=== PATIENT | male | born 1940 | race Caucasian/White ===

== ENCOUNTER → 2017-06-13 | Outpatient (CLI) | payer OTHER ==
[~2017-06-13] VITALS: Ht 177.8 cm; Wt 67.1 kg
[~2017-06-13] MED LIST: B12INJ IM; CHILD IBUP100 MG/5 M PT; CHILDREN'S100 MG/59 PER TUBE; CHILDREN'S160 MG/53 PER TUBE; COMBIGAN EYE DR10 ML OTIC; COSOPT OCUMETER10 M1 OP; CYANOCOBALAM1000 MCG IM; DIOCTO50 MG/5 ML PER TUBE; FLOMAX0.4 MG PER TUBE; GLUCOPHAGE1000 MG PT; GLUMETZA1000; KEFLEX500 M1 PER TUBE; KEFLEX500 MG PO; KEPPRA 100100 MG/M1 PO; LANSOPRAZOLE30 MG PO; LEVAQUIN 500 M500 M2 PER TUBE; LUMIGAN2.5 M1 OP; MECLIZINE 25 MG25 M1 PO; MIRALAX17 GM PO; NEXIUM40 MG PT; NOVOLOG100 UNIT/1; PENICILLIN VK500 M1 PO; PHENADOZ25 MG; PHENERGAN 25 MG25 M1 PER TUBE; PHENERGAN 25 MG25 M1 PO; PREVACID15 MG PER TUBE; PROMETHAZI; PROSCAR 5MG TABL5 MG PER TUBE; PROTONIX40 M1 PER TUBE; TAMSULOSIN HCL0.4 M1; TAMSULOSIN HCL0.4 M1 PER TUBE; TRAVATAN 0.004%5 ML OP; TRUSOPT5 ML OP; TRUSOPT5 ML OPHTHALMIC; URECHOLINE 25 M25 M1 GT; URECHOLINE50 MG PER TUBE; [UNRECOGNIZED DRUG - OTHER] PO
--- NOTE | ~2017-06-13 | P ---
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 Current PEG tube is in place for about 3 years and has started to deteriorate. PREOPERATIVE DIAGNOSIS: Failing PEG tube. POSTOPERATIVE DIAGNOSIS: Dysphagia secondary to postoperative changes from ENT cancer surgery. ESTIMATED BLOOD LOSS: 3 mL. PROCEDURE: Initial traction removal of PEG tube followed by aborted attempt at endoscopic placement. FINDINGS: In the presurgical area the patient was seen and examined and initial plans were by tract removal of the PEG tube. The PEG tube was well lubricated and traction was applied to the tube. It required a considerable effort to pull the PEG tube and the internal retention disk broke from the PEG tube. The tube was pulled out of the fistula. We then applied the insertion trocar to the replacement PEG tube and stretched it out to pass through the fistula. However, on several attempts, I could not pass the replacement tube through the fistula. It may be scarred or there may be irregular course. Due to the amount of pressure required, it was felt to be unsafe to attempt to place this tube blindly externally through the existing fistula tract. We then had the patient taken to the endoscopy suite and under propofol sedation, we attempted to pass an EGD scope. However, in his pharynx, I could not find a lumen into the esophagus. Multiple angles were attempted and at no point could I see any lumen to pass the scope. Therefore, it was felt that we could not endoscopically place this tube. The EGD was aborted at that point. At that point, it was felt best to have the patient go to Interventional Radiology for placement of tube in the fluoroscopy suite. The patient is agreeable to this plan. CONDITION OF THE PATIENT UPON DISCHARGE: Following procedure, the patient [address] [address] PROCEDURE REPORT Name: CLARI GRACIA Room #: REG [facility]#: [id number] Admission: 06/13/17 Attend Phys: Miki Gutierrez MD Discharge: Date of : 42 Report #: [id number] drowsy. He will be then taken to the Interventional Radiology for placement of a PEG tube. INSTRUCTIONS TO THE PATIENT AND FAMILY AT THE TIME OF DISCHARGE: Resume use of tube per Radiology orders. He should return to see me on an as needed basis. Unfortunately, going forward, he may need to go to Interventional Radiology for PEG tube placement in the future. <ELECTRONICALLY SIGNED> By: Miki Gutierrez MD 06/14/17 1201 0925 [id number] Miki Gutierrez MD /nt
== END | disposition home or self-care (01) ==
LOC: GI 07:30
DX: K94.23 Gastrostomy malfunction (principal); R13.19 Other dysphagia; K21.9 Gastro-esophageal reflux disease without esophagitis; Z85.89 Personal history of malignant neoplasm of other organs and systems; Z98.890 Other specified postprocedural states; Z79.899 Other long term (current) drug therapy
CPT/HCPCS: 62110; 62900

== ENCOUNTER 2017-10-04 11:59 | Emergency (ER) | payer OTHER ==
[~2017-10-04] VITALS: Ht 177.8 cm; Wt 66.2 kg
[2017-10-04 14:00] VITALS: BP 108/66
== END 2017-10-04 13:58 | disposition home or self-care (01) ==
LOC: ER 11:59
DX: K94.23 Gastrostomy malfunction (principal)

== ENCOUNTER 2017-10-10 08:39 | Emergency (ER) | payer OTHER ==
[~2017-10-10] VITALS: Ht 167.6 cm; Wt 66.2 kg
[2017-10-10 09:47] VITALS: BP 103/55
== END 2017-10-10 19:04 | disposition home or self-care (01) ==
LOC: ER 08:39
DX: K94.23 Gastrostomy malfunction (principal); K21.9 Gastro-esophageal reflux disease without esophagitis

== ENCOUNTER 2018-03-16 18:37 | Inpatient (IN) | payer OTHER ==
[~2018-03-16] VITALS: Ht 177.8 cm; Wt 66.2 kg
[2018-03-16 18:40] VITALS: BP 110/60
[2018-03-16 19:09] LABS: HEMATOCRIT 39.7 % (42.0-52.0); HEMOGLOBIN 13.7 gm/dL (14.0-18.0); MCHC 34.6 g/dL (28.0-37.0); MCV 95.5 fL (80.0-100.0); RBC 4.16 mil/uL (4.50-6.00); RDW 12.7 % (10.5-14.5); WBC 10.7 thou/uL (4.0-11.0)
[2018-03-16 19:19] LABS: ANION GAP 8 mmol/L (7-16); BUN 22 mg/dL (7-18); CHLORIDE 98 mmol/L (98-107); CO2 29 mmol/L (21-32); CREATININE 0.9 mg/dL (0.7-1.3); GLUCOSE 305 mg/dL (74-106); POTASSIUM 3.5 mmol/L (3.5-5.1); SODIUM 135 mmol/L (136-145)
[2018-03-16 19:23] LABS: APTT 25.7 Seconds (24.5-32.8); PROTIME 9.8 Seconds (9.3-11.4)
[2018-03-16 19:27] LABS: TROPONIN-I <0.06 ng/mL (<0.06)
[2018-03-16 20:21] LABS: URINE COLOR YELLOW
[2018-03-16 20:22] LABS: URINE BILIRUBIN NEGATIVE (Negative); URINE BLOOD NEGATIVE (Negative); URINE CLARITY CLEAR; URINE GLUCOSE-RANDOM* 3+ (Negative); URINE KETONES NEGATIVE (Negative); URINE NITRITE-REFLEX NEGATIVE (Negative); URINE PROTEIN (DIPSTICK) NEGATIVE (Negative); URINE SPECIFIC GRAVITY 1.015 (1.005-1.035); URINE UROBILINOGEN 0.2 E.U./dl (0.2-1.0)
[2018-03-16 20:23] LABS: URINE LEUKOCYTES-REFLEX NEGATIVE (Negative)
[2018-03-16 20:29] LABS: AMP/METHAMP Negative (Negative); BARBITURATES Negative (Negative); BENZODIAZEPINES Negative (Negative); COCAINE Negative (Negative); METHADONE Negative (Negative); OPIATES Negative (Negative); PCP Negative (Negative)
[2018-03-16 20:58] VITALS: BP 117/63
[2018-03-16 21:11] VITALS: BP 115/59
[2018-03-16 21:30] VITALS: BP 116/67
--- NOTE | 2018-03-16 22:25 | EKG ---
[address] [address] ELECTROCARDIOGRAM REPORT Name: CLARI GRACIA Room #: 362-P ADM IN M.R.#: [id number] Admission: 03/16/18 Attend Phys: Mira Albright Discharge: Date of : 42 Report #: [id number] THIS REPORT FOR: //name// [facility] ED Test Date: 2018-03-16 Test Time: 19:03:17 Pat Name: CLARI GRACIA Department: Room: [facility] Gender: M Radio Television Technical Director: RASTA : 1940 Requested By: Hernan Collins Order Number: [id number] MD: Olman Yusuf Measurements Intervals [place] Rate: 108 P: 84 IA: 186 QRS: 59 QRSD: 94 T: 54 QT: 360 QTc: 483 Interpretive Statements Sinus tachycardia Consider right atrial enlargement Probable right ventricular hypertrophy Compared to ECG 10/22/2013 23:49:26 ST (T wave) deviation no longer present Electronically Signed On 03-16-2018 22:25:37 FRANCHISE MANAGER by Olman Yusuf [email or web address] <ELECTRONICALLY SIGNED> By: Olman Yusuf MD 03/16/18 2225 02 02 Olman Yusuf MD /EPI
[2018-03-16] MEDS ORDERED: NEXIUM40 MG PO (22:36)
--- NOTE | 2018-03-16 22:38 | NUR ---
Patient admitted to unit this shift. He arrived via cart from the er and was transferred to bed incident free. Patient is alert but has troubles communicating. Family at bedside. Nurse to finish admission process and initiate care plan.
[2018-03-16 23:40] VITALS: BP 110/65
[2018-03-17 02:37] LABS: ALBUMIN 2.9 g/dL (3.4-5.0); DIRECT BILIRUBIN 0.1 mg/dL (<0.1-0.3); TOTAL BILIRUBIN 0.5 mg/dL (<0.1-1.0); TOTAL PROTEIN 6.2 g/dL (6.4-8.2)
[2018-03-17 03:20] VITALS: BP 96/59
[2018-03-17 07:30] VITALS: BP 93/59
[2018-03-17 11:08] VITALS: BP 92/59
--- NOTE | 2018-03-17 11:47 | NUR ---
ASSESSMENT: CM REVIEWED CHART AND MET WITH PATIENT AT THE BEDSIDE. PT WAS ADMITTED AFTER AMS/WEAKNESS. PT HAS FX TO RIGHT WRIST AND HAS A BRACE ON. PT LIVES IN A HOUSE ALONE. CM SPOKE WITH PATIENTS BROTHER NEREYDA/RIO. PT LIVES IN A HOME ALONE BUT BROTHER STATES HE IS OVER THREE AT LEAST 3X/DAY TO HELP WITH HIS FOOD/MEDICATIONS AND USUALLY IS THERE AROUND 8, 1, AND 5. PT REPORTS THAT PATIENT HAS ABOUT TWO STEPS WITH HANDRAILS TO GET INTO THE HOME AND NO STEPS ONCE INSIDE. PATIENTS BROTHER REPORTS NORMALLY IN THE HOUSE AMBULATES INDEPENDENTLY BUT DOES USE A CANE OUTSIDE OF THE HOUSE. PT IS INDEPENDENT WITH ADLS AND HAS A SHOWER CHAIR. PT HAS HAD HH IN THE PAST. PATIENTS BROTHER REPORTS HE IS THERE SO OFTEN THAT HE DOES NOT FEEL HH WOULD BE USEFUL AND THAT HE HAS REALLY GOOD FAMILY SUPPORT. PATIENTS BROTHER ORDERS PATIENTS TUBE FEEDS ONLINE HE REPORTS. CM WILL CONTINUE TO FOLLOW TO ASSIST NEEDED.
[2018-03-17 15:34] VITALS: BP 96/58
--- NOTE | 2018-03-17 15:40 | NUR ---
PT ALERT TO PERSON AND PLACE. VERY HARD OF HEARING, HAS JOSTIN HEARING AIDS. PT C/O PAIN TO RUE, BRACE TO R WRIST IN PLACE. BOLUS TF STARTED PER DR ORDER, PT TOLERATING WELL. MED BM THIS SHIFT. PT'S BROTHER AND DPOA ANXIOUS FOR BROTHER TO DISCHARGE HOME.
[2018-03-17 20:15] VITALS: BP 112/62
[2018-03-17 23:46] VITALS: BP 102/50
[2018-03-18 00:06] LABS: GLYCOHEMOGLOBIN (HGB A1C) 6.4 % (4.8-5.6)
[2018-03-18 04:21] LABS: PHOSPHORUS 2.1 mg/dL (2.5-4.9)
[2018-03-18 04:48] LABS: FOLIC ACID 21.1 ng/mL (8.6-58.9)
[2018-03-18 05:30] VITALS: BP 110/56
--- NOTE | 2018-03-18 06:33 | NUR ---
Pt a/o x person and situation. On RA. Able to communicate simple needs with simple needs with nurse and TREATING PLANT SUPERVISOR. PEG tube intact, works properly. VSS. Fall precautions maintained. Call light within reach. Pt resting in bed comfortably at this time. No apparent distress noted. Will continue to monitor.
[2018-03-18 08:11] VITALS: BP 116/75
--- NOTE | 2018-03-18 09:16 | NUR ---
ASSESMENT COMPLETED. VSS. A/O. C/O PAIN ON RIGHT WRIST. MEDS GIVEN ORDERED BOULUS FEEDINGS GIVEN. NO RESIDUAL NOTED. USES THE URINAL THIS AM. YAUNKER SUCTION AT BEDSIDE. PT ABLE TO MAKE NEEDS KNOWN. BROTHER AT BEDSIDE. WILL CONT. TO MONITOR.
[2018-03-18 09:57] VITALS: BP 116/75
[2018-03-18 11:22] VITALS: BP 116/75
--- NOTE | 2018-03-18 11:44 | NUR ---
DC INSTRUCTION GIVEN TO PT'S BROTHER. HOME HEALTH REFERRAL FAXED TO [facility]- CONFIRMATION RECEIVED. CALLED HOME CARE NURSE- STATED OFFICE IS CLOSED TODAY- THEY WILL SET UP HH FOR PT TREVON WHEN OFFICE OPENS. PT TO DC HOME IN STABLE CONDITION.
== END 2018-03-18 12:13 | disposition home health service (06) | DRG 548 ==
LOC: ER 18:37 → 3W 20:44 → EROBS 20:44 → 3W 21:17
PROVIDERS: Emergency Medicine; Nurse Practitioner Acute Care; Nurse Practitioner Family; ADMIT Hospitalist
PROC: 2W3EX1Z Immobilization of Right Hand using Splint (ICD-10-PCS; principal; 2018-03-16)
DX: M00.9 Pyogenic arthritis, unspecified (principal); G92 Toxic encephalopathy; M19.031 Primary osteoarthritis, right wrist; S63.591A Other specified sprain of right wrist, initial encounter; S60.211A Contusion of right wrist, initial encounter; W19.XXXA Unspecified fall, initial encounter; N40.0 Benign prostatic hyperplasia without lower urinary tract symptoms; K21.9 Gastro-esophageal reflux disease without esophagitis; H91.93 Unspecified hearing loss, bilateral; R41.0 Disorientation, unspecified; X58.XXXA Exposure to other specified factors, initial encounter; R79.89 Other specified abnormal findings of blood chemistry; R13.10 Dysphagia, unspecified; E11.65 Type 2 diabetes mellitus with hyperglycemia; Z85.810 Personal history of malignant neoplasm of tongue; Z79.899 Other long term (current) drug therapy; Y93.89 Activity, other specified; Y92.098 Other place in other non-institutional residence as the place of occurrence of the external cause; Y99.8 Other external cause status; Z87.891 Personal history of nicotine dependence; Z85.01 Personal history of malignant neoplasm of esophagus
CPT/HCPCS: 10879

== ENCOUNTER → 2019-08-13 | Outpatient (CLI) | payer OTHER ==
[~2019-08-13] VITALS: Ht 177.8 cm; Wt 65.8 kg
[~2019-08-13] MED LIST changes: +NEXIUM 40 MG CA40 M1 PO; +NEXIUM40 MG PO
--- NOTE | 2019-08-26 17:52 | P ---
[facility] [place] [address] [place] [address] PROCEDURE REPORT Name: CLARI GRACIA Room #: REG [facility]#: [id number] Admission: 08/13/19 Attend Phys: Miki Gutierrez MD Discharge: Date of : 42 Report #: [id number] THIS REPORT FOR: cc: Rustam Gaspar MD, Eric K. MD Thesing,Miki Foster MD ~ CC: Rustam Gutierrez DATE OF SERVICE: 08/13/2019 BRIEF HISTORY: The patient is a 79-year-old male with history of ENT cancer who has dysphagia and a long-term indwelling PEG tube. The tube is starting to break down. PREOPERATIVE DIAGNOSIS: Failing PEG tube. POSTOPERATIVE DIAGNOSIS: Dysphagia with replacement with failing PEG tube. MEDICATIONS: None. SPECIMEN: None. ESTIMATED BLOOD LOSS: 3 mL. PROCEDURE: Traction removal of indwelling non-balloon tipped PEG tube with insertion of balloon tipped 20-Andorran feeding gastrostomy tube. FINDINGS: The procedure was reviewed with the patient. He indicates he understands and desired that we proceed. DESCRIPTION OF PROCEDURE: The patient was in the supine position. The existing PEG tube was discolored and the wall was starting to break down. However, it appeared to be intact. The fistula site was good. There was no granulation tissue. The tube was lubricated and with traction, the tube was pulled. Unfortunately, the internal bumper broke off and did not come out with the tube. Subsequently, the 20-Andorran balloon tipped feeding gastrostomy tube was easily inserted into the fistula tract. The balloon was filled with 5 mL of saline. The external restraining device was applied. The patient tolerated the procedure well. DISPOSITION: May resume use of PEG tube today. Discussed with the patient that [facility] [address] [address] PROCEDURE REPORT Name: CLARI GRACIA [id number] Admission: 08/13/19 Attend Phys: Miki Gutierrez MD Discharge: Date of : 42 Report #: [id number] this is a balloon tipped tube and may dislodge easier. If he has any difficulties, he should call or return as needed. <ELECTRONICALLY SIGNED> By: Miki Gutierrez MD 08/26/19 1752 1059 1900 Miki Gutierrez MD /nt
== END | disposition home or self-care (01) ==
LOC: GI 08:48
PROVIDERS: ATTEND Specialist
DX: K94.23 Gastrostomy malfunction (principal); R13.10 Dysphagia, unspecified; Z11.59 Encounter for screening for other viral diseases